=== PATIENT | male | born 1990 | race Caucasian/White ===

== ENCOUNTER → 2018-12-14 | Outpatient (REF) | payer MEDICAID, OTHER, SELFPAY ==
[2018-12-14 20:20] LABS: BASO % 0.3 % (0.0-1.0); EOS # 0.1 10^3/uL (0.0-0.5); EOS % 0.6 % (0.0-3.0); HEMATOCRIT 47.1 % (42.0-52.0); HEMOGLOBIN 16.1 g/dl (13.5-17.5); LYMPH # 2.9 10^3/uL (1.5-5.0); LYMPH % 21.5 % (24.0-44.0); MEAN CORPUSCULAR HEMOGLOBIN 31.6 pg (27.0-33.0); MEAN CORPUSCULAR HGB CONC 34.2 g/dl (32.0-36.5); MEAN CORPUSCULAR VOLUME 92.5 fl (80.0-96.0); MONO # 1.8 10^3/uL (0.0-0.8); MONO % 13.2 % (0.0-5.0); NEUTROPHILS # 8.7 10^3/uL (1.5-8.5); PLATELET COUNT, AUTOMATED 270 10^3/uL (150-450); RED BLOOD COUNT 5.09 10^6/uL (4.30-6.10); WHITE BLOOD COUNT 13.6 10^3/uL (4.0-10.0)
[2018-12-14 20:24] LABS: ALBUMIN 4.5 GM/DL (3.2-5.2); ALT/SGPT 38 U/L (12-78); BILIRUBIN,TOTAL 0.3 MG/DL (0.2-1.0); BLOOD UREA NITROGEN 12 MG/DL (7-18); CALCIUM LEVEL 9.7 MG/DL (8.5-10.1); CARBON DIOXIDE LEVEL 30 MEQ/L (21-32); CHLORIDE LEVEL 102 MEQ/L (98-107); CREATININE FOR GFR 0.84 MG/DL (0.70-1.30); GLOMERULAR FILTRATION RATE > 60.0 (>60); GLUCOSE, FASTING 90 MG/DL (70-100); POTASSIUM SERUM 4.5 MEQ/L (3.5-5.1); SODIUM LEVEL 137 MEQ/L (136-145); TOTAL PROTEIN 7.8 GM/DL (6.4-8.2)
[2018-12-14 20:55] LABS: ERYTHROCYTE SEDIMENTATION RATE 13 mm/hr (0-15)
== END ==
LOC: M LABDRWAD 19:42
PROVIDERS: ATTEND Physician Assistant
DX: R59.0 Localized enlarged lymph nodes (principal)

== ENCOUNTER → 2018-12-15 | Outpatient (CLI) | payer SELFPAY ==
--- NOTE | 2018-12-15 10:52 | REP ---
ULTRASOUND LEFT NECK SOFT TISSUES: Real-time sonographic evaluation of the left neck soft tissues performed. There is a somewhat complex oval hypoechoic nodule with peripheral blood flow with Doppler evaluation. This measures 3.1 x 1.6 x 2.5 cm. 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 There is an adjacent nodule with an echogenic hilum most consistent with a lymph node measuring 1.2 x 1.0 x 1.3 cm. 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 There is an adjacent lymph node with short axis dimension 1 cm. Electronically Signed by Vamsi Crandall MD 12/16/2018 10:08 A
== END ==
LOC: M RAD 09:03 → EDUNIT# 09:30
PROVIDERS: ATTEND Physician Assistant
DX: R22.1 Localized swelling, mass and lump, neck (principal)

== ENCOUNTER → 2019-02-03 | Outpatient (CLI) | payer MEDICAID ==
[~2019-02-03] MED LIST: ISOVUE-370 76% 100ML VIAL (Q9967) As Ordered ONE
--- NOTE | 2019-02-04 09:21 | REP ---
CT neck: 02/03/2019. Indication: Left neck mass. Comparison: None. Technique: Axial images of the neck soft tissues were obtained following IV administration of 70 ml Isovue 370 with coronal and sagittal reconstructions provided. Findings: There is eight 2.5 by 1.6 x 1.4 cm somewhat bilobed appearing low attenuating mass which appears within the anterior left sternocleidomastoid muscle just posterior to the subclavian gland. The airway is patent. The palatine and pharyngeal tonsils are moderately prominent without focal abnormality. No vascular abnormalities are present. There is no abnormal solid soft tissue mass or cervical lymphadenopathy. Impression: Somewhat bilobed focus of low attenuation which appears within the anterior left sternocleidomastoid muscle as described. Considerations include abscess/infection, branchial cleft cyst and additional less likely etiologies. Electronically Signed by Bradley Alonso DO 02/04/2019 09:13 A
== END ==
LOC: M RAD 17:04
PROVIDERS: ATTEND Otolaryngology
DX: R22.1 Localized swelling, mass and lump, neck (principal)
CPT/HCPCS: 70491; Q9967

== ENCOUNTER 2019-03-02 09:27 | Day surgery (SDC) | payer MEDICAID, OTHER ==
[~2019-03-02] VITALS: Ht 177.8 cm; Wt 58.0 kg
[2019-03-02] MEDS ORDERED: PROPOFOL 200 MG/20 ML VIAL As Ordered ONE ×2 (09:52→11:15)
[2019-03-02] MEDS ORDERED: dexameTHASONE 4 MG/ML 1ML VIAL (J1100) IV ONE (10:15)
[2019-03-02] MEDS ORDERED: LR 1,000 ML IV ONE (10:45)
[2019-03-02] MEDS ORDERED: SUCCINYLCHOLINE 100 MG/5 ML SYRINGE (J0330) As Ordered ONE ×2 (11:15→11:46)
[2019-03-02] MEDS ORDERED: LIDOCAINE 2% INJ 100 MG/5 ML SDV (FOR ANES.) As Ordered ONE (11:15)
[2019-03-02] MEDS ORDERED: ROCURONIUM BROMIDE 50 MG/5 ML VIAL As Ordered ONE (11:15)
[2019-03-02] MEDS ORDERED: fentaNYL 100 MCG/2 ML INJECTION (J3010) As Ordered ONE (11:15)
[2019-03-02] MEDS ORDERED: dexameTHASONE 4 MG/ML 1ML VIAL (J1100) As Ordered ONE (11:16)
[2019-03-02] MEDS ORDERED: ONDANSETRON 4MG/2ML VIAL (J2405) As Ordered ONE (11:16)
[2019-03-02] MEDS ORDERED: MIDAZOLAM INJ 2 MG/2 ML VIAL (J2250) As Ordered ONE (11:16)
[2019-03-02] MEDS ORDERED: LIDOCAINE W/EPINEPHRINE 1% 20ML VIAL As Ordered ONE (11:43)
[2019-03-02] MEDS ORDERED: POLYSPORIN OPHTH OINT 3.5 GM As Ordered ONE (11:45)
[2019-03-02] MEDS ORDERED: POLYSPORIN TOPICAL OINTMENT 15GM As Ordered ONE (11:46)
[2019-03-02] MEDS ORDERED: PHENYLephrine HCL 500 MCG/5 ML (100MCG/ML) SYRINGE (J2370) As Ordered ONE (12:53)
[2019-03-02] MEDS ORDERED: PHENYLEPHRINE INJ 10MG/ML VIAL (J2370) As Ordered ONE (13:21)
[2019-03-02] MEDS ORDERED: HYDROmorphone HCL 2 MG/ML 1ML VIAL (J1170) As Ordered ONE (14:00)
[2019-03-02] MEDS ORDERED: ACETAMINOPHEN 1000MG 100ML IV BTL (OFIRMEV) (J0131 PER 10MG) As Ordered ONE (14:21)
[2019-03-02] MEDS ORDERED: LR 1,000 ML IV SCH ×2 (15:00→15:15)
[2019-03-02] MEDS ORDERED: fentaNYL 100 MCG/2 ML INJECTION (J3010) IV PRN (15:00)
[2019-03-02] MEDS ORDERED: HYDROMORPHONE HCL 0.5 MG/ 0.5 ML SYRINGE (J1170 PER 1) IV PRN (15:00)
[2019-03-02] MEDS ORDERED: oxyCODONE 5MG TAB PO PRN (15:00)
[2019-03-02] MEDS ORDERED: ONDANSETRON 4MG/2ML VIAL (J2405) IV PRN (15:00)
[2019-03-02] MEDS ORDERED: LR 500 ML IV ONE (16:00)
[2019-03-02] MEDS ORDERED: LR 500 ML IV PRN (17:00)
[2019-03-02 18:45] VITALS: BP 111/67
--- NOTE | 2019-03-27 12:01 | RO ---
DATE OF PROCEDURE: 03/02/2019 PREPROCEDURE DIAGNOSIS: Left upper neck mass. POSTPROCEDURE DIAGNOSIS: Left upper neck mass. PROCEDURE: Excision of the left upper neck mass. SURGEON: Pancho Thrasher MD SCRUBBER MACHINE TENDER: Rock Blancas MD ANESTHESIA: General. CLINICAL PREAMBLE: This 28-year-old man presented to the office with a history of a left upper neck mass that has been slowly enlarging. 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 Management options including excision of the left upper neck mass have been discussed. The patient understood and consented to the procedure. DESCRIPTION OF PROCEDURE: The patient was identified in preop holding and had the left neck marked. He was brought to the operating room in stable condition. In supine position on the operating table, the patient received general anesthesia followed by orotracheal intubation without incident. The patient was prepped and draped in the usual fashion for the procedure. The left upper neck mass was palpated. Incision was then made over the left upper neck mass. The subplatysmal flap was then developed superior-inferior around the left upper neck mass. The anterior border of the left sternocleidomastoid muscle was identified and dissected. The mass lesion was found and dissected. The mass has a bilobe structure, which was successfully identified and dissected as well. Careful dissection was carried out to ensure the internal jugular vein and the carotid arteries were safely retracted. Dissection of the mass superior towards the bifurcation of the carotid was carried out until there was no further identifiable mass lesion. The lesion was then successfully resected en bloc. A somewhat enlarged lymph node was noted in the left upper neck, which was sent for frozen section. It was reported to be free of evidence of lymphoma. At this time, hemostasis was achieved by using bipolar electrocautery. Oswald powder was applied. The Luis F drain was placed. The incision was then closed in two layers using #3-0 Vicryl for reapproximating the platysmal muscle and #5-0 Prolene for achieving final skin closure. Bacitracin was then applied over the surgical incision site. My spa assistant manager, Dr. Blancas, was present throughout the case, who allowed for successful and safe dissection of the neck mass. He was present throughout the entire case. At the end of the procedure, sponge and instrument counts were correct. No complication was encountered. Estimated blood loss was approximately 20 mL. General anesthesia was reversed, the patient was extubated and brought to the recovery room in stable condition.
== END 2019-03-02 18:50 | disposition home or self-care (01) ==
LOC: M SDC 09:27
PROVIDERS: ATTEND Otolaryngology
DX: D21.0 Benign neoplasm of connective and other soft tissue of head, face and neck (principal); F90.9 Attention-deficit hyperactivity disorder, unspecified type; F41.9 Anxiety disorder, unspecified; F17.210 Nicotine dependence, cigarettes, uncomplicated; Z79.899 Other long term (current) drug therapy
CPT/HCPCS: 21554; 87070; 87075; 87077; 87102; 87116; 87186; 87206; 88307; 88331; J0131; J0330; J0697; J1100; J1170; J2250; J2370; J2405; J3010

== ENCOUNTER → 2024-11-13 | Outpatient (CLI) | payer BC ==
[2024-11-13 16:09] LABS: PLATELET COUNT, AUTOMATED 308 10^3/uL (150-450)
[2024-11-13 16:39] LABS: CALCIUM LEVEL 9.7 MG/DL (8.5-10.1); CARBON DIOXIDE LEVEL 26 MMOL/L (20-31); CHLORIDE LEVEL 104 MMOL/L (98-107); CREATININE FOR GFR 0.82 MG/DL (0.70-1.30); GLOMERULAR FILTRATION RATE > 90.0 (>60); POTASSIUM SERUM 4.5 MMOL/L (3.5-5.1); SODIUM LEVEL 140 MMOL/L (136-145)
[2024-11-13 16:42] LABS: FREE T4 1.20 NG/DL (0.89-1.76)
== END ==
LOC: M LAB 14:48
PROVIDERS: ATTEND Physician Assistant
DX: R61 Generalized hyperhidrosis (principal)